=== PATIENT | female | born 1980 | race Caucasian/White ===

== ENCOUNTER 2019-01-26 09:33 | Outpatient (CLI) | payer OTHER ==
--- NOTE | 2019-01-26 10:37 | MMO ---
Bilateral MAMMO Bilat Diag [facility]. CLINICAL HISTORY: Patient is 38 years old and is seen for diagnostic exam and lump or thickening in the right breast. The patient has the following family history of breast cancer: maternal aunt and maternal aunt, at age 50. The patient has no personal history of cancer. VIEWS: The views performed were: bilateral craniocaudal with tomosynthesis; bilateral mediolateral oblique with tomosynthesis; bilateral mediolateral with tomosynthesis; and right exaggerated craniocaudal. FILMS COMPARED: The present examination has been compared to a prior imaging study performed at [facility] on 01/26/2019. MAMMOGRAM FINDINGS: The breasts are heterogeneously dense, which could obscure a lesion on mammography. There are no suspicious masses, suspicious calcifications, or new areas of architectural distortion. IMPRESSION: THERE IS NO MAMMOGRAPHIC EVIDENCE OF MALIGNANCY. A ROUTINE FOLLOW-UP MAMMOGRAM IN 1 YEAR IS RECOMMENDED. THE RESULTS OF THIS EXAM WERE SENT TO THE PATIENT. ACR BI-RADS Category 1 - Negative MAMMOGRAPHY NOTE: 1. A negative mammogram report should not delay a biopsy if a dominant of clinically suspicious mass is present. 2. Approximately 10% to 15% of breast cancers are not detected by mammography. 3. Adenosis and dense breasts may obscure an underlying neoplasm.
--- NOTE | 2019-01-26 10:52 | ULT ---
ULTRASOUND RIGHT BREAST: INDICATION: Ultrasound upper outer right breast performed to assess an area of palpable concern. FINDINGS: There are numerous cysts identified in the upper outer quadrant of the right breast. There is a sept ated cyst at 10 o'clock measuring approximately 0.5 cm. Several smaller cysts are seen in this regio n. A cyst at 10 o'clock is also septated and measures approximately 0.5 cm. No solid nodule or susp icious sonographic abnormality. IMPRESSION: Numerous cysts in the upper outer quadrant of the right breast. No suspicious sonographic abnormalit y. BI-RADS 2, benign findings. POS: OFF
== END 2019-01-26 09:34 | disposition home or self-care (01) ==
LOC: BICMAMMO 09:33
PROVIDERS: ATTEND Obstetrics & Gynecology
DX: N63.10 Unspecified lump in the right breast, unspecified quadrant (principal); N60.01 Solitary cyst of right breast
CPT/HCPCS: 77066; G0279

== ENCOUNTER 2023-03-03 15:21 | Outpatient (CLI) | payer OTHER | END 2023-03-03 15:22 | disposition home or self-care (01) | LOC: ULT 15:21 | PROVIDERS: ATTEND Nurse Practitioner Family | DX: N39.46 Mixed incontinence (principal); N39.43 Post-void dribbling | CPT/HCPCS: 76856 ==